=== PATIENT | female | born 1960 ===

== ENCOUNTER 2017-05-17 14:26 | Day surgery (SDC) | payer MEDICAID ==
[2017-05-17] MEDS ORDERED: LR 1,000 ML IV ONE (15:08)
[2017-05-17] MEDS ORDERED: NALOXONE HCL 0.4 MG/ML INJ IVP PRN (15:12)
--- NOTE | 2017-05-17 15:12 | PDANEPAE ---
ANE History of Present Illness abdominal pain, dyphagia ANE Past Medical History - Cardiovascular History Hx Hypertension: No Hx Arrhythmias: No Hx Chest Pain: No Hx Coronary Artery / Peripheral Vascular Disease: No Hx CHF / Valvular Disease: No Hx Palpitations: No - Pulmonary History Hx COPD: No Hx Asthma/Reactive Airway Disease: Yes Hx Recent Upper Respiratory Infection: No Hx Oxygen in Use at Home: No Hx Sleep Apnea: No Sleep Apnea Screening Result - Last Documented: Negative Pulmonary History Comment: USES INHALER - Neurologic History Hx Cerebrovascular Accident: No Hx Seizures: No Hx Dementia: No - Endocrine History Hx Diabetes: No - Renal History Hx Renal Disorders: No - Liver History Hx Hepatic Disorders: No - Neurological & Psychiatric Hx Hx Neurological and Psychiatric Disorders: No - Cancer History Hx Cancer: No - Congenital Disorder History Hx Congenital Disorders: No - GI History Hx Gastrointestinal Disorders: No - Other Health History Other Health History: NONE - Chronic Pain History Chronic Pain: Yes (RIGHT HIP PAIN) - Surgical History Prior Surgeries: NONE ANE Review of Systems Review of Systems: - Exercise capacity METS (RN): 5 METS ANE Patient History - Allergies Allergies/Adverse Reactions: Environmental Allergy (Uncoded 05/17/17 14:59) - Home Medications Home Medications: Lexapro 05/17/17 [Last Taken 05/16/17] Proair Hfa 05/17/17 [Last Taken 05/17/17] traZODone 05/17/17 [Last Taken 05/16/17] - NPO status NPO Since - Liquids (Date): 05/17/17 NPO Since - Liquids (Time): 11:00 NPO Since - Solids (Date): 05/16/17 NPO Since - Solids (Time): 20:00 - Smoking Hx Smoking Status: Never smoked - Family Anes Hx Family Hx Anesthesia Complications: NONE ANE Labs/Vital Signs - Vital Signs Blood Pressure: 106/76 Heart Rate: 75 Respiratory Rate: 15 O2 Sat (%): 96 Height: 163.83 cm Weight: 68.039 kg ANE Physical Exam - Airway Neck exam: FROM Mallampati Score: Class 1 Mouth exam: normal dental/mouth exam - Pulmonary Pulmonary: no respiratory distress - Cardiovascular Cardiovascular: regular rate and rhythym - ASA Status ASA Status: II ANE Anesthesia Plan Total IV Anesthesia: Yes
--- NOTE | 2017-05-17 15:20 | PDGENHP ---
History & Physical Chief Complaint: Dysphagia, GERD, screening colonoscopy Relevant Physical Exam: GEN: NAD. Cardiac: RRR. Lungs: CTA B. Abd: Soft, nt, nd
--- NOTE | 2017-05-17 15:49 | GIREPORT ---
[facility] Surgical Services - Endoscopy Department Patient Name: Brittney Cummins Procedure Date: 05/17/2017 3:00 PM Patient Type: Outpatient Attending / ER Physician: Dewayne Roth MD Procedure: Upper GI endoscopy Indications: Heartburn Providers: Dewayne Roth MD Medicines: Monitored Anesthesia Care Complications: No immediate complications. Description of Procedure: After obtaining informed consent, the endoscope was passed under direct vision. Throughout the procedure, the patient's blood pressure, pulse, and oxygen saturations were monitored continuous ly. The Endoscope was introduced through the mouth, and advanced to the second part of duodenum. The upper GI endoscopy was accomplished without difficulty. The patient tolerated the procedure well . Findings: The examined esophagus was normal. The Z-line was regular and was found 40 cm from the incisors. Localized minimal inflammation characterized by erythema was found in the gastric antrum. Biopsi es were taken with a cold forceps for histology. Verification of patient identification for the spe cimen was done by the physician and nurse using the patient's name and date. Estimated blood los s was minimal. The examined duodenum was normal. Biopsies were taken with a cold forceps for histology. Verific ation of patient identification for the specimen was done by the physician and nurse using the patient 's name and date. Estimated blood loss was minimal. Estimated Blood Loss: Estimated blood loss: none. Post Op Diagnosis: - Normal esophagus. - Z-line regular, 40 cm from the incisors. - Gastritis. Biopsied. - Normal examined duodenum. Biopsied. Recommendation: - Discharge patient to home (with escort). - Resume previous diet. - Continue present medications. - Await pathology results. Results are available within 10 days. - Thank you for allowing me to participate in the care of your patient. Attending Participation: I personally performed the entire procedure. Dewayne Roth MD Dewayne Roth MD 05/17/2017 3:48:53 PM Number of Addenda: 0 Note Initiated On: 05/17/2017 3:00 PM [email or web address]}
--- NOTE | 2017-05-17 15:52 | GIREPORT ---
[facility] Surgical Services - Endoscopy Department Patient Name: Brittney Cummins Procedure Date: 05/17/2017 3:31 PM Patient Type: Outpatient Attending / ER Physician: Dewayne Roth MD Procedure: Colonoscopy Indications: Screening for colorectal malignant neoplasm Providers: Dewayne Roth MD Medicines: Monitored Anesthesia Care Complications: No immediate complications. Description of Procedure: After obtaining informed consent, the scope was passed under direct vision. Throughout the proce dure, the patient's blood pressure, pulse, and oxygen saturations were monitored continuously. The Colonoscope was introduced through the anus and advanced to the cecum, identified by appendiceal orifice and ileocecal valve. The colonoscopy was performed without difficulty. The patient deanna ated the procedure well. The quality of the bowel preparation was inadequate. Findings: The perianal and digital rectal examinations were normal. A large amount of solid stool was found in the entire colon, precluding visualization. Lavage of the area was performed using copious amounts of normal saline, resulting in incomplete clearance wit h continued poor visualization. The retroflexed view of the distal rectum and anal verge was normal and showed no anal or rectal abnormalities. Estimated Blood Loss: Estimated blood loss: none. Post Op Diagnosis: - Preparation of the colon was inadequate. - Stool in the entire examined colon. - The distal rectum and anal verge are normal on retroflexion view. - No specimens collected. Recommendation: - Discharge patient to home (with escort). - Resume previous diet. - Continue present medications. - Repeat colonoscopy at the next available appointment for screening purposes. Recommend 2 day prep with 2 gallons of GoLytely prior to a re peat colonoscopy. - Thank you for allowing me to participate in the care of your patient. Attending Participation: I personally performed the entire procedure. Dewayne Roth MD Dewayne Roth MD 05/17/2017 3:51:37 PM Number of Addenda: 0 Note Initiated On: 05/17/2017 3:31 PM Total Procedure Duration Time 0 hours 8 minutes 35 seconds [id number]}
--- NOTE | 2017-05-17 15:53 | POSTANESTH ---
Post Anesthetic Evaluation Cardiovascular Status: Normal, Stable Respiratory Status: Normal, Stable Level of Consciousness/Mental Status: Can Participate in Eval Pain Control: Adequate, Prn Tx Ordered Nausea/Vomiting Control: Adequate, Prn Tx Ordered Complications Possibly Related to Anesthesia: None Noted
[2017-05-17 17:22] VITALS: RESP 16
[2017-05-17 17:46] VITALS: BP 110/65; PULSE 72; TEMP 98.1; O2SAT 96
== END 2017-05-17 17:46 | disposition home or self-care (01) ==
LOC: FSGY 14:26
PROVIDERS: ATTEND Internal Medicine Gastroenterology
PROC: 0DJD8ZZ Inspection of Lower Intestinal Tract, Via Natural or Artificial Opening Endoscopic (ICD-10-PCS; principal; 2017-05-17 15:30)
PROC: 0DB98ZX Excision of Duodenum, Via Natural or Artificial Opening Endoscopic, Diagnostic (ICD-10-PCS; 2017-05-17 15:30)
PROC: 0DB68ZX Excision of Stomach, Via Natural or Artificial Opening Endoscopic, Diagnostic (ICD-10-PCS; 2017-05-17 15:30)
DX: K29.30 Chronic superficial gastritis without bleeding (principal); R13.10 Dysphagia, unspecified; K21.9 Gastro-esophageal reflux disease without esophagitis; F41.9 Anxiety disorder, unspecified; G47.00 Insomnia, unspecified

== ENCOUNTER 2017-05-19 06:42 | Day surgery (SDC) | payer MEDICAID ==
[2017-05-19] MEDS ORDERED: MIDAZOLAM 2 MG/2 ML VIAL IVP ONE (07:23)
--- NOTE | 2017-05-19 07:28 | PDANEPAE ---
ANE History of Present Illness 57 year old for colonoscopy ANE Past Medical History - Cardiovascular History Hx Hypertension: No Hx Arrhythmias: No Hx Chest Pain: No Hx Coronary Artery / Peripheral Vascular Disease: No Hx CHF / Valvular Disease: No Hx Palpitations: No - Pulmonary History Hx COPD: No Hx Asthma/Reactive Airway Disease: Yes Hx Recent Upper Respiratory Infection: No Hx Oxygen in Use at Home: No Hx Sleep Apnea: No Sleep Apnea Screening Result - Last Documented: Negative Pulmonary History Comment: USES INHALER - Neurologic History Hx Cerebrovascular Accident: No Hx Seizures: No Hx Dementia: No - Endocrine History Hx Diabetes: No - Renal History Hx Renal Disorders: No - Liver History Hx Hepatic Disorders: No - Neurological & Psychiatric Hx Hx Neurological and Psychiatric Disorders: No - Cancer History Hx Cancer: No - Congenital Disorder History Hx Congenital Disorders: No - GI History Hx Gastrointestinal Disorders: No Gastrointestinal History Comment: told by "codie menjivar". IBS symptoms? - Other Health History Other Health History: R hip pain? - Chronic Pain History Chronic Pain: Yes (RIGHT HIP PAIN) - Surgical History Prior Surgeries: NONE ANE Review of Systems Review of systems is: negative Review of Systems: - Exercise capacity METS (RN): 4 METS ANE Patient History - Allergies Allergies/Adverse Reactions: Environmental Allergy (Uncoded 05/17/17 14:59) - Home Medications Home Medications: Lexapro 05/17/17 [Last Taken 05/16/17] Proair Hfa 05/17/17 [Last Taken 05/17/17] traZODone 05/17/17 [Last Taken 05/16/17] - Anes Hx Anes Hx: no prior problems - Smoking Hx Smoking Status: Never smoked - Alcohol Use Alcohol Use: None - Family Anes Hx Family Anes Hx: none Family Hx Anesthesia Complications: NONE ANE Labs/Vital Signs - Vital Signs Height: 163.83 cm Weight: 68.039 kg ANE Physical Exam - Airway Neck exam: FROM Mallampati Score: Class 1 - Pulmonary Pulmonary: no respiratory distress, clear to auscultation - Cardiovascular Cardiovascular: regular rate and rhythym - ASA Status ASA Status: II ANE Anesthesia Plan Anesthesia Plan: MAC
--- NOTE | 2017-05-19 07:41 | PDGENHP ---
History & Physical Chief Complaint: colon screen History of Present Illness: colon screen Pertinent Past, Social, Family History: reviewed Relevant Physical Exam: nad, abd nt/nd Cardiorespiratory Assessment: rrr. ctab
[2017-05-19 07:43] VITALS: PULSE 75
[2017-05-19] MEDS ORDERED: fentaNYL 100 MCG/2 ML INJ ONE (07:44)
[2017-05-19] MEDS ORDERED: PROPOFOL 200 MG/20 ML VIAL ONE (07:44)
[2017-05-19] MEDS ORDERED: NALOXONE HCL 0.4 MG/ML INJ IVP PRN (08:06)
[2017-05-19] MEDS ORDERED: PROMETHAZINE HCL 25 MG/ML INJ IVP PRN (08:06)
--- NOTE | 2017-05-19 08:20 | POSTANESTH ---
Post Anesthetic Evaluation Cardiovascular Status: Normal, Stable Respiratory Status: Normal, Stable Level of Consciousness/Mental Status: Can Participate in Eval, Alert and Oriented Pain Control: Adequate, Prn Tx Ordered Nausea/Vomiting Control: Adequate, Prn Tx Ordered Complications Possibly Related to Anesthesia: None Noted
--- NOTE | 2017-05-19 08:24 | GIREPORT ---
[facility] Surgical Services - Endoscopy Department Patient Name: Brittney Cummins Procedure Date: 05/19/2017 7:45 AM Patient Type: Outpatient Attending MD/ ER Physician: Yves Gonzalez MD Procedure: Colonoscopy Indications: Screening for colorectal malignant neoplasm, failed colon due to poor p rep both yesterday and day before (pt has now had 3 preps and clear liquids for 4 days. Providers: Yves Gonzalez MD Medicines: Propofol per Anesthesia Complications: No immediate complications. Description of Procedure: After obtaining informed consent, the scope was passed under direct vision. Throughout the proce dure, the patient's blood pressure, pulse, and oxygen saturations were monitored continuously. The Colonoscope with irrigation channel was introduced through the anus and advanced to the terminal ileum, with identification of the appendiceal orifice and IC valve. The colonoscopy was performe d without difficulty. The patient tolerated the procedure well. The quality of the bowel preparati on was good. The terminal ileum, ileocecal valve, appendiceal orifice, and rectum were photographed . Findings: The terminal ileum appeared normal. Multiple small and large-mouthed diverticula were found in the sigmoid colon and ascending colon . The exam was otherwise without abnormality on direct and retroflexion views. Estimated Blood Loss: Estimated blood loss: none. Post Op Diagnosis: - The examined portion of the ileum was normal. - Diverticulosis in the sigmoid colon and in the ascending colon. - The examination was otherwise normal on direct and retroflexion views . - No specimens collected. Recommendation: - Patient has a contact number available for emergencies. The signs and symptoms of potential delayed complications were discussed with the pat ient. Return to normal activities tomorrow. Written discharge instructions we re provided to the patient. - Resume previous diet. - Continue present medications. - Repeat colonoscopy in 10 years for screening purposes. Would plan on 1 week of linzess 290 ug (or equivalent rx laxative) prior to prep to hopefully avoid failed colonoscopy. - Thank you for allowing me to participate in the care of this patient. Attending Participation: I personally performed the entire procedure. I personally performed the entire procedure without the assistance of a fellow, resident or it assistant. Yves Gonzalez MD Yves Gonzalez MD 05/19/2017 8:23:58 AM Number of Addenda: 0 Note Initiated On: 05/19/2017 7:45 AM Total Procedure Duration Time 0 hours 19 minutes 50 seconds [email or web address]
[2017-05-19 08:49] VITALS: TEMP 96.8
[2017-05-19 09:32] VITALS: BP 97/46; RESP 13; O2SAT 91
== END 2017-05-19 09:45 | disposition home or self-care (01) ==
LOC: FSGY 06:42
PROVIDERS: ATTEND Internal Medicine
PROC: 0DJD8ZZ Inspection of Lower Intestinal Tract, Via Natural or Artificial Opening Endoscopic (ICD-10-PCS; principal; 2017-05-19 07:30)
DX: Z12.11 Encounter for screening for malignant neoplasm of colon (principal); K57.30 Diverticulosis of large intestine without perforation or abscess without bleeding; K58.9 Irritable bowel syndrome, unspecified; F41.9 Anxiety disorder, unspecified; G47.00 Insomnia, unspecified
CPT/HCPCS: J2704; J3010